=== PATIENT | male | born 1980 | race Caucasian/White ===

== ENCOUNTER 2023-10-14 16:44 | Emergency (ER) | payer BC, SELFPAY ==
[2023-10-14 17:08] VITALS: BP 145/76; PULSE 100; RESP 20; TEMP 37.7; O2SAT 100
--- NOTE | 2023-10-14 18:03 | ED.SKABFB ---
HPI - Skin/Abscess/Foreign Bdy General Chief complaint: Skin/Abscess/Foreign Body Stated complaint: rash on leg in groin area/fever Time Seen by Provider: 10/14/23 18:04 Source: patient, RN notes reviewed and old records reviewed Mode of arrival: ambulatory Limitations: no limitations History of Present Illness HPI narrative: 43 year old male accompanied by friend with complaints of yesterday morning he had fever of 103F and took some dual action Ibuprofen and at 2pm fever gone. Patient states that he had pain to his left groin area at 8 p.m. last night. He states that he noted rash to his left lower leg starting at 0130 this morning which has progressively spread up his lower leg. He states that his left groin redness he noticed today. Patient reports that it has progressively been more difficult to ambulated as day has progressed. Patient does have firmness to his left calf area and reports some tenderness also, pulses strong to left foot Patient reports past back surgery X2 with staph infection after 2nd surgery requiring PICC line and states he developed clots in his left arm from the heparin used to flush PICC line. MD complaint: rash (lower left leg anterior aspect) and other (fevers, redness to left groin) Tetanus up to date: yes Location: LLE Severity scale (1-10): 10 Pain Consistency: constant Exacerbating factors: other (weight bearing) Treatments prior to arrival: other (dual action Ibuprofen last dose at 1000 this morning) Related Data Home Medications Medication Instructions Recorded Confirmed escitalopram oxalate 10 mg tablet 10 mg PO DAILY 10/14/23 10/14/23 omeprazole 20 mg capsule,delayed 20 mg PO DAILY 10/14/23 10/14/23 release Allergies Allergy/AdvReac Type Severity Reaction Status Date / Time vancomycin Allergy Severe Redness of Verified 10/14/23 23:21 Skin heparin AdvReac Intermediate Other Verified 10/14/23 17:34 Review of Systems Review of Systems: CONSTITUTIONAL: Reports fever, chills, or sweats. CARDIOVASCULAR: Denies chest pain, palpitations, or edema. RESPIRATORY: Denies cough or dyspnea. SKIN: Reports redness to left groin upper thigh area, pain redness with rash type of lesions to anterior left lower legs with tightness to calf. MUSCULOSKELETAL: Denies joint pain or myalgia. reports increased difficulty with ambulation due to pain left leg NEUROLOGIC: Denies headache, numbness, or weakness. All systems reviewed & are unremarkable except as noted in HPI and below PMFSH Past Medical History Medical History DVT of axillary vein, acute left Staph infection Surgical History Surgical History History of back surgery x2 Family History Family History Other Family history non-contributory Social History Social History Smoking status: Never smoker Alcohol intake: never Alcohol use details: rare alcohol use Substance use: never Substance use type: does not use Do You Feel Safe in your Home?: Yes Lack of Transportation: No Lack of Food: Never True Current Housing: I Have Housing Concerned About Future Housing: No Difficulty Paying Gas/Electric Bills: No Difficulty Paying for Meds: No Currently Unemployed: No Education: Bachelor's Degree Difficulty w/ Childcare or Family Care: No Gender identity (if verbalized by the patient): Male Spiritual care concerns: No Comments At time of signature, agree with nursing past medical, surgical, social and family history. There is no relevant family history pertinent to the presenting complaint Exam Narrative: GENERAL: flushed-appearing, well-nourished, and in some acute distress. HEAD: Normocephalic, atraumatic. EYES: PERRLA, conjunctivae clear, and EOMI. ENT: Mucous membranes moist. Oropharynx
[2023-10-14 18:38] VITALS: TEMP 39.5
[2023-10-14] MEDS: IBUPROFEN 600 MG TABLET PO (18:38)
[2023-10-14 18:40] VITALS: TEMP 39.5
== END 2023-10-14 18:40 | disposition short-term general hospital (02) ==
PROVIDERS: Emergency Provider Registered Nurse
DX: L03.116 Cellulitis of left lower limb (principal); Z79.899 Other long term (current) drug therapy
CPT/HCPCS: 99212; A9270; G0463

== ENCOUNTER 2023-10-14 19:01 | Inpatient (IN) | payer BC, SELFPAY ==
[2023-10-14] VITALS (24 sets, daily range): BP systolic 130–152; BP diastolic 48–87; PULSE 94–114; RESP 13–24; TEMP 38.8–39.2; O2SAT 97–100; BMI 31.6
--- NOTE | ~2023-10-14 | US_ITS ---
EXAMINATION: US venous doppler [facility] DATE: 10/15/2023 12:20 INDICATION: Left lower limb erythema TECHNIQUE: Grayscale ultrasound images without and with compression and Doppler ultrasound images of the bilateral lower extremity veins were obtained. COMPARISON: None. FINDINGS: The visualized portions of right common femoral vein, profunda (deep) femoral vein, femoral vein, pop liteal vein, posterior tibial veins, peroneal veins, gastrocnemius vein and greater saphenous vein ou tflow are patent. The visualized portions of left common femoral vein, profunda femoral vein, femoral vein, popliteal v ein, posterior tibial veins, peroneal veins, gastrocnemius vein and greater saphenous vein outflow ar e patent. There are few mildly prominent but still normal-sized left inguinal lymph nodes, the larges t measuring 1 cm in maximal short axis diameter which remains within normal limits with typical centr al fatty hilum. IMPRESSION: 1. No deep venous thrombosis in either lower limb. 2. Mild likely reactive left inguinal lymphadenopathy. Reviewed, dictated and finalized at location [facility]. [facility]
[2023-10-14 20:16] LABS: Basophils Percent Auto 0.2 % (0.2-1.2); Eosinophils Percent Auto 0.1 % (0-4.4); Hematocrit 41.6 % (42.0-52.0); Hemoglobin 14.1 g/dL (14.0-18.0); Immature Granulocyte Absolute 0.04 K/mm3 (0.00-0.031); Immature Granulocyte Percent A 0.4 % (0-0.5); Lymphocytes Absolute Auto 0.87 K/mm3 (0.9-3.2); Lymphocytes Percent Auto 8.3 % (18.3-44.2); Mean Corpuscular HGB Conc 33.9 g/dl (32-36); Mean Corpuscular Hemoglobin 27.8 pg (26-34); Mean Corpuscular Volume 82.1 fl (80-100); Mean Platelet Volume 9.9 fl (7.4-10.4); Monocytes Absolute Auto 0.5 K/mm3 (0.1-0.6); Monocytes Percent Auto 5.1 % (2.6-8.5); Neutrophils Percent Auto 85.9 % (45.5-73.1); Platelet Count Result 164 k/mm3 (150-375); Red Blood Count 5.07 M/mm3 (4.6-6.20); White Blood Count 10.5 K/mm3 (4.5-10.0)
[2023-10-14] MEDS: SODIUM CHLORIDE 0.9% IV 1,000 ML 999 ML IV CONT ×2 (20:24→20:40)
[2023-10-14 20:25] LABS: Alanine Aminotransferase 70 U/L (6-50); Albumin Level 3.8 g/dL (3.5-5.1); Alkaline Phosphatase 144 U/L (38-126); Anion Gap 5 mmol/L (8-16); Aspartate Amino Transferase 49 U/L (17-59); Bilirubin,Total 1.3 mg/dL (0.2-1.3); Blood Urea Nitrogen 14 mg/dL (9-20); Calcium 8.6 mg/dL (8.4-10.2); Carbon Dioxide 28 mmol/L (22-30); Chloride 106 mmol/L (98-107); Estimated CRCL calculation 127 ml/min; Estimated Glomerular Filt Rate > 60; Glucose 107 mg/dL (65-110); Potassium 3.4 mmol/L (3.4-5.0); Sodium 139 mmol/L (137-145)
--- NOTE | 2023-10-14 20:27 | ED.EXTPRO ---
HPI - Extremity Problem General Chief complaint: Extremity Problem,Nontraumatic Stated complaint: fever, leg rash, leg pain Time Seen by Provider: 10/14/23 19:13 History of Present Illness HPI Narrative: Patient is a 43-year-old male presenting with rash. Patient states that he was out last night for new year's [place]. He noticed an area of redness on his left leg around 1:30 a.m.. States that he woke up this morning and was still there and he developed a fever. He took some ibuprofen but then the fever returned several hours later. He was seen at urgent care who advised that he come to the ER for evaluation. States that the redness has now spread up to his thigh. States that it really only hurts whenever he tries to stand on it. 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 He denies numbness or weakness. Denies recent trauma. Denies vomiting. No further complaints. Related Data Home Medications Medication Instructions Recorded Confirmed escitalopram oxalate 10 mg tablet 10 mg PO DAILY 10/14/23 10/14/23 omeprazole 20 mg capsule,delayed 20 mg PO DAILY 10/14/23 10/14/23 release Allergies Allergy/AdvReac Type Severity Reaction Status Date / Time vancomycin Allergy Severe Redness of Verified 10/14/23 23:21 Skin heparin AdvReac Intermediate Other Verified 10/14/23 17:34 Review of Systems Review of Systems: All systems reviewed & are unremarkable except as noted in HPI and below PMFSH Past Medical History Medical History DVT of axillary vein, acute left Staph infection Surgical History Surgical History History of back surgery x2 Family History Family History Other Family history non-contributory Social History Social History Smoking status: Never smoker Alcohol intake: never Alcohol use details: rare alcohol use Substance use: never Substance use type: does not use Do You Feel Safe in your Home?: Yes Lack of Transportation: No Lack of Food: Never True Current Housing: I Have Housing Concerned About Future Housing: No Difficulty Paying Gas/Electric Bills: No Difficulty Paying for Meds: No Currently Unemployed: No Education: Bachelor's Degree Difficulty w/ Childcare or Family Care: No Gender identity (if verbalized by the patient): Male Spiritual care concerns: No Exam Narrative: GENERAL: Nontoxic, no acute distress, pleasant cooperative HEAD: Normocephalic, atraumatic. EYES: PERRLA and EOMI. ENT: Mucous membranes moist. NECK: Supple. CHEST: Clear to auscultation. No respiratory distress. HEART: Regular rate and rhythm. ABDOMEN: Soft, nontender, nondistended EXTREMITIES: left leg with large area of erythema distal calf that spreads up to the knee; lymphangitic streaking from the knee to upper thigh, no abscesses, no crepitus, compartments are soft; distal pulses 2+ SKIN: Warm, dry, as above NEURO: No focal deficits. Alert and oriented x3. PSYCH: Normal mood and affect. Course Vital Signs Vital signs: Vital Signs Temperature 101.8 F H 10/14/23 19:13 Pulse Rate 114 H 10/14/23 19:13 Respiratory Rate 21 H 10/14/23 19:13 Blood Pressure 134/82 10/14/23 19:13 Pulse Oximetry 98 10/14/23 19:13 Temperature 97.7 F 10/17/23 20:00 Pulse Rate 79 10/17/23 20:45 Respiratory Rate 17 10/17/23 20:45 Blood Pressure 128/67 10/17/23 20:00 Pulse Oximetry 98 10/17/23 20:45 Oxygen Delivery Room Air 10/17/23 20:45 MDM - Extremity (Nontraumatic) MDM Narrative Medical decision making narrative: 43-year-old male presenting with left leg cellulitis. Patient is febrile and slightly tachycardic on arrival. Exam is remarkable for the above. IV fluids and broad-spectrum antibiot
[2023-10-14 20:56] LABS: Erythrocyte Sedimentation Rate 47 mm/hr (0-20)
[2023-10-14 21:05] LABS: CRP 13.4 mg/dL (<1.0)
[2023-10-14] MEDS: LINEZOLID 600 MG/300 ML 600 MG/300 ML SOLN 300 MG IVPB (21:36)
[2023-10-14] MEDS: CEFEPIME 2 GM/NS 50 ML 2 GM/50 ML BAG IVPB (21:36)
--- NOTE | 2023-10-14 21:38 | PC.NURSE ---
MD requested to hold off on morphine as PRN to see how toradol helps with pain first.
[2023-10-14] MEDS: KETOROLAC 30 MG/ML VIAL (*BKC) IV PUSH (21:42)
[2023-10-14] MEDS: ACETAMINOPHEN 500 MG TABLET 1000 MG PO (22:25)
--- NOTE | 2023-10-14 22:30 | ADMGEN ---
This patient, Jordan Rick, was admitted to Medical Room 249-01. Patient/family oriented to hospital policies and general routines including ID bracelet, bed and alarms, visiting hours, pain management, procedures, bathroom and other care routines, personal items, smoking policy, room service/diet, and visiting hours. Information on how to activate the Rapid Response Team has been discussed. Patient/Family are encouraged to report perceived risks to care and to ask questions if they do not understand what they are told or what they should do.
--- NOTE | 2023-10-14 23:00 | PM.IMHP ---
H&P: HPI History of Present Illness Date/Time: 10/14/23 23:00 Chief Complaint: Patient came to the ED evaluation of his left lower leg rash and left groin area pain Narrative: Very pleasant gentleman who woke up couple nights ago with fever of 103 and noticed pain and swelling in the left groin later that evening. Today morning when he was was getting ready to to go to bed after new year celebration, he saw redness, pain and swelling with rash in the left payne area. The rash has worsened and kept on expanding up to the left thigh and groin area. Patient's partner has been marking the left lower leg rash progression throughout the day which continues to worsen. He went to the urgent care and was sent to the ER for evaluation where workup was done and he was diagnosed with left lower leg cellulitis. 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 He is diagnosed with left leg cellulitis, started on IV cefepime and linezolid and being admitted for medical management and close monitoring. Review of Systems Review of Systems: 14 systems were reviewed with pertinent positives and negatives per HPI. Except as documented in the HPI/progress notes, all other systems were reviewed and are negative. All systems reviewed & are unremarkable except as noted in HPI and below PMFSH Past Medical History Medical History DVT of axillary vein, acute left Staph infection Surgical History Surgical History History of back surgery x2 Family History Family History Other Family history non-contributory Social History Social History Smoking status: Never smoker Alcohol intake: never Alcohol use details: rare alcohol use Substance use: never Substance use type: does not use Do You Feel Safe in your Home?: Yes Lack of Transportation: No Lack of Food: Never True Current Housing: I Have Housing Concerned About Future Housing: No Difficulty Paying Gas/Electric Bills: No Difficulty Paying for Meds: No Currently Unemployed: No Education: Bachelor's Degree Difficulty w/ Childcare or Family Care: No Gender identity (if verbalized by the patient): Male Spiritual care concerns: No Meds Home Medications and Allergies Home Medications Medication Instructions Recorded Confirmed Type escitalopram oxalate 10 mg tablet 10 mg PO DAILY 10/14/23 10/14/23 History omeprazole 20 mg capsule,delayed 20 mg PO DAILY 10/14/23 10/14/23 History release Allergies Allergy/AdvReac Type Severity Reaction Status Date / Time vancomycin Allergy Severe Redness of Verified 10/14/23 23:21 Skin heparin AdvReac Intermediate Other Verified 10/14/23 17:34 Vital Signs Vital Signs - 24 hr 10/14/23 19:13 10/14/23 19:15 10/14/23 19:16 Temperature 38.8 C H Pulse Rate 114 H 102 H Respiratory Rate 21 H 19 Blood Pressure 134/82 141/76 H 141/76 H Pulse Oximetry 98 100 Oxygen Delivery 10/14/23 19:17 10/14/23 19:30 10/14/23 19:31 Temperature Pulse Rate 101 H 95 95 Respiratory Rate 20 20 22 H Blood Pressure 130/76 Pulse Oximetry 100 97 Oxygen Delivery 10/14/23 19:45 10/14/23 20:00 10/14/23 20:01 Temperature Pulse Rate 94 97 98 Respiratory Rate 18 19 18 Blood Pressure 132/74 Pulse Oximetry 98 97 100 Oxygen Delivery 10/14/23 20:15 10/14/23 20:30 10/14/23 20:45 Temperature Pulse Rate 96 98 99 Respiratory Rate 15 23 H 13 Blood Pressure Pulse Oximetry 100 100 Oxygen Delivery 10/14/23 21:00 10/14/23 21:15 10/14/23 21:26 Temperature Pulse Rate 99 104 H 101 H Respiratory Rate 19 18 18 Blood Pressure 152/83 H Pulse Oximetry 100 Oxygen Delivery 10/14/23 21:30 10/14/23 21:31 10/14/23 21:45 Temp
[2023-10-15] VITALS (12 sets, daily range): BP systolic 95–133; BP diastolic 51–65; PULSE 81–100; RESP 14–18; TEMP 36.9–38.8; O2SAT 97–100
[2023-10-15] MEDS: ACETAMINOPHEN 325 MG TABLET 650 MG PO ×3 (02:53→14:27)
[2023-10-15 06:17] LABS: Basophils Percent Auto 0.2 % (0.2-1.2); Eosinophils Percent Auto 0.1 % (0-4.4); Hematocrit 37.3 % (42.0-52.0); Hemoglobin 12.2 g/dL (14.0-18.0); Immature Granulocyte Percent A 0.9 % (0-0.5); Lymphocytes Absolute Auto 1.01 K/mm3 (0.9-3.2); Lymphocytes Percent Auto 9.2 % (18.3-44.2); Mean Corpuscular HGB Conc 32.7 g/dl (32-36); Mean Corpuscular Volume 82.5 fl (80-100); Mean Platelet Volume 10.6 fl (7.4-10.4); Monocytes Absolute Auto 0.6 K/mm3 (0.1-0.6); Monocytes Percent Auto 5.7 % (2.6-8.5); Neutrophils Absolute Auto 9.2 K/mm3 (1.3-6.7); Neutrophils Percent Auto 83.9 % (45.5-73.1); Platelet Count Result 142 k/mm3 (150-375); Red Blood Count 4.52 M/mm3 (4.6-6.20)
[2023-10-15 06:22] LABS: Alanine Aminotransferase 53 U/L (6-50); Albumin Level 3.2 g/dL (3.5-5.1); Alkaline Phosphatase 119 U/L (38-126); Anion Gap 7 mmol/L (8-16); Aspartate Amino Transferase 37 U/L (17-59); Bilirubin,Total 1.7 mg/dL (0.2-1.3); Blood Urea Nitrogen 11 mg/dL (9-20); Calcium 7.9 mg/dL (8.4-10.2); Carbon Dioxide 25 mmol/L (22-30); Chloride 106 mmol/L (98-107); Estimated CRCL calculation 128 ml/min; Estimated Glomerular Filt Rate > 60; Glucose 104 mg/dL (65-110); Magnesium 1.6 mg/dL (1.6-2.3); Phosphorus 2.6 mg/dL (2.5-4.5); Potassium 3.2 mmol/L (3.4-5.0); Sodium 138 mmol/L (137-145)
[2023-10-15 06:36] LABS: CRP 14.4 mg/dL (<1.0)
[2023-10-15] MEDS: CEFEPIME 2 GM/NS 50 ML 2 GM/50 ML BAG IVPB ×2 (09:15→20:24)
[2023-10-15] MEDS: PANTOPRAZOLE 40 MG TABLET PO (09:15)
[2023-10-15] MEDS: ESCITALOPRAM OXALATE 10 MG TABLET PO (09:15)
[2023-10-15] MEDS: KETOROLAC 30 MG/ML VIAL (*BKC) IV PUSH ×2 (09:16→20:26)
[2023-10-15] MEDS: LINEZOLID 600 MG/300 ML 600 MG/300 ML SOLN 300 MG IVPB ×2 (10:15→20:58)
--- NOTE | 2023-10-15 11:14 | PM.IMPN ---
Progress Note: A&P Assessment and Plan (1) Cellulitis: Code(s): L03.90 - Cellulitis, unspecified Status: Acute Assessment and Plan: Continue current abx of Linezolid and Cefepime given his previous hx of Red Man's Reaction to Vancomycin. Continue to monitor labs including Blood cultures Obtain Venous doppler based on appearance and hx of prior DVT. Continue to monitor VS and labs for development of Sepsis. Trend labs Trend VS Treat Fever PRN Provide PRN pain meds (2) SIRS (systemic inflammatory response syndrome): Code(s): R65.10 - Systemic inflammatory response syndrome (SIRS) of non-infectious origin without acute organ dysfunction Status: Acute Assessment and Plan: See #1 (3) Leukocytosis: Code(s): D72.829 - Elevated white blood cell count, unspecified Status: Acute Assessment and Plan: See #1 (4) Lymphadenopathy, inguinal: Code(s): R59.0 - Localized enlarged lymph nodes Status: Acute Assessment and Plan: See #1, likely reactive. Time Spent With Patient Time with patient: 15 - 25 minutes Subjective Date/time seen: 10/15/23 0845 Interval history: This 43 year old male pt w/PMH of previous DVT, and staph infection post Back surgery who was admitted overnight to the medical floor with Acute Cellulitis of the LLE is examined at the bedside today in interval assessment. He reports feeling the same at this point and is noted to still have fever, and pain and swelling to the LLE anteriorly and also to the medial groin with redness and warmth. He remains on IV Cefepime and Linezolid at this time. He has pain medications ordered and PRN anti-pyretics. He did have interval increase today in his WBC count, and his CRP. Blood cultures are still pending. He denies any acute injury or lesions to the LLE prior to the redness, warmth and pain beginning. We are currently awaiting Venous dopplers. He has no other acute complaints at this time such as CP, dyspnea, N/V/D, or any other concerns. Review of Systems Review of Systems: All systems reviewed & are unremarkable except as noted in HPI and below Exam Narrative: PHYSICAL EXAMINATION: General physical exam: Morbidly obese male pt lying supine in bed at this time in no acute distress. Head/eyes: Atraumatic, grossly intact. ENT: Moist mucous membranes, nasal passages clear Neck: Supple, full range of motion, trachea midline CVS: RRR, S1 and S2 present. No M,R,G,H Respiratory:CTAB in all rodney posteriorly. Abdomen: Soft, non-tender, bowel sounds present x4 Extremities: No clubbing, no cyanosis, no edema, no calf tenderness Musculoskeletal: Moves all, adequate range of motion, no muscle spasms Skin: Warm, dry, no jaundice, no cyanosis, ++ maculopapular rash on left payne, extending up the leg to the left groin, + enlarged mildly tender inguinal lymph nodes without palpable cord. Neurological: Awake, alert, oriented x 3, cranial nerves II-XII intact, no focal neurological deficits Psychiatric: Normal mood, non suicidal Objective Data Vital Signs Vital Signs: Vital Signs - 24 hr 10/14/23 19:13 10/14/23 19:15 10/14/23 19:16 Temperature 101.8 F H Pulse Rate 114 H 102 H Respiratory Rate 21 H 19 Blood Pressure 134/82 141/76 H 141/76 H Pulse Oximetry 98 100 Oxygen Delivery 10/14/23 19:17 10/14/23 19:30 10/14/23 19:31 Temperature Pulse Rate 101 H 95 95 Respiratory Rate 20 20 22 H Blood Pressure 130/76 Pulse Oximetry 100 97 Oxygen Delivery 10/14/23 19:45 10/14/23 20:00 10/14/23 20:01 Temperature Pulse Rate 94 97 98 Respiratory Rate 18 19 18 Blood Pressure 132/74 Pulse Oximetry 98 97 100 Oxygen Delivery 10/14/23 20:15 10/14/23 20:30 10/14/23 20:45 Temperature Pulse Rate 96 98 99 Respiratory Rate 15 23 H 13 Blood Pressure Pulse Oximetry 100 100 Oxygen Delivery 10/14/23 21:00 10/14/23 21:15 10/14/23 21:26 Temperature Pulse R
[2023-10-15] MEDS: POTASSIUM CHLORIDE 20 MEQ ER TABLET 40 MEQ PO (20:25)
[2023-10-16] VITALS (13 sets, daily range): BP systolic 106–134; BP diastolic 53–72; PULSE 71–96; RESP 16–18; TEMP 37.1–38.6; O2SAT 92–98
[2023-10-16] MEDS: ACETAMINOPHEN 325 MG TABLET 650 MG PO ×4 (00:10→21:06)
[2023-10-16 06:09] LABS: Basophils Percent Auto 0.2 % (0.2-1.2); Eosinophils Absolute Auto 0.1 K/mm3 (0-0.3); Eosinophils Percent Auto 0.7 % (0-4.4); Hemoglobin 11.8 g/dL (14.0-18.0); Immature Granulocyte Absolute 0.06 K/mm3 (0.00-0.031); Immature Granulocyte Percent A 0.7 % (0-0.5); Immature Platelet Fraction Pct 4.9 % (0.9-11.2); Lymphocytes Percent Auto 7.7 % (18.3-44.2); Mean Corpuscular HGB Conc 32.8 g/dl (32-36); Mean Corpuscular Hemoglobin 26.9 pg (26-34); Mean Corpuscular Volume 82.2 fl (80-100); Mean Platelet Volume 10.6 fl (7.4-10.4); Monocytes Absolute Auto 0.6 K/mm3 (0.1-0.6); Monocytes Percent Auto 6.9 % (2.6-8.5); Neutrophils Absolute Auto 7.6 K/mm3 (1.3-6.7); Neutrophils Percent Auto 83.8 % (45.5-73.1); Platelet Count Result 139 k/mm3 (150-375); Red Blood Count 4.38 M/mm3 (4.6-6.20); Red Cell Distribution Width 13.9 % (11.5-14.5); White Blood Count 9.1 K/mm3 (4.5-10.0)
[2023-10-16 06:27] LABS: Alanine Aminotransferase 44 U/L (6-50); Albumin Level 3.2 g/dL (3.5-5.1); Alkaline Phosphatase 148 U/L (38-126); Anion Gap 8 mmol/L (8-16); Aspartate Amino Transferase 28 U/L (17-59); Bilirubin,Total 2.3 mg/dL (0.2-1.3); Blood Urea Nitrogen 11 mg/dL (9-20); Calcium 8.3 mg/dL (8.4-10.2); Carbon Dioxide 24 mmol/L (22-30); Chloride 105 mmol/L (98-107); Estimated CRCL calculation 116 ml/min; Estimated Glomerular Filt Rate > 60; Glucose 102 mg/dL (65-110); Potassium 3.3 mmol/L (3.4-5.0); Sodium 137 mmol/L (137-145)
[2023-10-16 07:05] LABS: CRP 21.4 mg/dL (<1.0)
[2023-10-16] MEDS: ESCITALOPRAM OXALATE 10 MG TABLET PO (08:30)
[2023-10-16] MEDS: PANTOPRAZOLE 40 MG TABLET PO (08:31)
[2023-10-16] MEDS: ENOXAPARIN 40 MG/0.4 ML SYRINGE SUB-Q (08:31)
[2023-10-16] MEDS: LINEZOLID 600 MG/300 ML 600 MG/300 ML SOLN 300 MG IVPB ×2 (08:32→20:23)
[2023-10-16] MEDS: CEFEPIME 2 GM/NS 50 ML 2 GM/50 ML BAG IVPB ×2 (12:00→20:23)
[2023-10-16] MEDS: KETOROLAC 30 MG/ML VIAL (*BKC) IV PUSH (12:01)
--- NOTE | 2023-10-16 12:22 | PM.IMPN ---
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 Continue to monitor labs including Blood cultures Venous doppler negative for DVT. Continue to monitor VS and labs for development of Sepsis. Blood cultures no growth to date Treat Fever PRN Provide PRN pain meds RPR, HIV, gonorrhea and chlamydia test ordered (2) SIRS (systemic inflammatory response syndrome): Code(s): R65.10 - Systemic inflammatory response syndrome (SIRS) of non-infectious origin without acute organ dysfunction Status: Acute Assessment and Plan: See #1 (3) Leukocytosis: Code(s): D72.829 - Elevated white blood cell count, unspecified Status: Acute Assessment and Plan: See #1 (4) Lymphadenopathy, inguinal: Code(s): R59.0 - Localized enlarged lymph nodes Status: Acute Assessment and Plan: See #1, likely reactive. Subjective Date/time seen: 10/16/23 12:22 Interval history: Patient states that he does not believe his leg is improving but also not worsening. Patient states that he 1st developed some groin tenderness and when he took his pants off prior to going to bed he noticed a rash over his payne as well as erythema surrounding the lower extremity and up into the groin. He has associated fevers but denies any nausea, vomiting and diarrhea. Patient denies trauma or injury at the site of the rash or itching. Denies recent travel, hunting, camping, new medication changes, or any sick contacts. Exam Narrative: GENERAL: Comfortable, no acute distress HENMT: moist mucous membranes EYES: EOM intact b/l NECK: no lymphadenopathy RESPIRATORY: clear to auscultation CARDIO: RRR GI: soft, nontender, bowel sounds present SKIN: circumferential erythema over the extremity that extends up the inner thigh and into the groin, palpable inguinal lymphadenopathy; over the payne there is a darker red, blanching rash. Calf squeeze tenderness, leg tender to touch and warm to touch, nonpitting edema. EXTREMITIES: no edema, redness or tenderness Objective Data Vital Signs Vital Signs: Vital Signs - 24 hr 10/15/23 14:27 10/15/23 16:35 10/15/23 20:10 Temperature 100.5 F H 98.4 F 99.1 F Pulse Rate 100 92 Respiratory Rate 16 14 Blood Pressure 122/59 L 114/57 L Pulse Oximetry 98 99 Oxygen Delivery 10/15/23 20:16 10/16/23 00:00 10/16/23 00:10 Temperature 101.5 F H 101.5 F H Pulse Rate 96 Respiratory Rate 16 Blood Pressure 113/60 Pulse Oximetry 97 Oxygen Delivery Room Air 10/16/23 01:07 10/16/23 04:20 10/16/23 04:22 Temperature 100.3 F H 100.8 F H 100.8 F H Pulse Rate 94 Respiratory Rate 16 Blood Pressure 106/53 L Pulse Oximetry 92 Oxygen Delivery 10/16/23 05:55 10/16/23 05:55 10/16/23 08:00 Temperature 99.3 F 99.3 F 98.8 F Pulse Rate 92 Respiratory Rate 17 Blood Pressure 108/56 L Pulse Oximetry 93 Oxygen Delivery Intake/Output Intake/Output: Intake & Output 10/13/23 10/14/23 10/15/23 10/16/23 23:59 23:59 23:59 23:59 Intake Total 2350 2560 690 Output Total 1800 1000 Balance 2350 760 -310 Meds/Results Medications: Active Medications Generic Name Dose Route Start Last Admin Trade Name Freq PRN Reason Stop Dose Admin Acetaminophen 650 mg 10/14/23 23:16 10/16/23 08:30 Acetaminophen 325 Mg Tablet PO 650 mg Q4H PRN Administration Mild Pain (1-3) or Fever Al Hydrox/Mg Hydrox/Simethicone 30 ml 10/14/23 23:16 Mag Hydrox/Al Hydrox/Simeth 30 Ml Udc PO QID PRN Dyspepsia Enoxaparin Sodium 40 mg
[2023-10-16 17:38] LABS: Chlamydia trachomatis NOT DETECTED (NOT DETECTE); Neisseria gonorrhoeae PCR NOT DETECTED (NOT DETECTE)
[2023-10-17] VITALS (11 sets, daily range): BP systolic 111–133; BP diastolic 48–70; PULSE 65–93; RESP 16–18; TEMP 36.4–37.8; O2SAT 94–99
[2023-10-17] MEDS: ACETAMINOPHEN 325 MG TABLET 650 MG PO (01:06)
[2023-10-17 06:25] LABS: Basophils Percent Auto 0.2 % (0.2-1.2); Eosinophils Absolute Auto 0.1 K/mm3 (0-0.3); Eosinophils Percent Auto 1.3 % (0-4.4); Hematocrit 36.7 % (42.0-52.0); Hemoglobin 12.2 g/dL (14.0-18.0); Immature Granulocyte Absolute 0.08 K/mm3 (0.00-0.031); Lymphocytes Absolute Auto 1.15 K/mm3 (0.9-3.2); Mean Corpuscular HGB Conc 33.2 g/dl (32-36); Mean Corpuscular Hemoglobin 27.2 pg (26-34); Mean Corpuscular Volume 81.9 fl (80-100); Mean Platelet Volume 9.9 fl (7.4-10.4); Monocytes Absolute Auto 0.5 K/mm3 (0.1-0.6); Monocytes Percent Auto 6.2 % (2.6-8.5); Neutrophils Absolute Auto 6.4 K/mm3 (1.3-6.7); Neutrophils Percent Auto 77.3 % (45.5-73.1); Platelet Count Result 194 k/mm3 (150-375); Red Blood Count 4.48 M/mm3 (4.6-6.20); Red Cell Distribution Width 13.9 % (11.5-14.5); White Blood Count 8.2 K/mm3 (4.5-10.0)
[2023-10-17 06:43] LABS: Alanine Aminotransferase 37 U/L (6-50); Albumin Level 3.2 g/dL (3.5-5.1); Alkaline Phosphatase 184 U/L (38-126); Anion Gap 8 mmol/L (8-16); Aspartate Amino Transferase 23 U/L (17-59); Bilirubin,Total 1.3 mg/dL (0.2-1.3); Blood Urea Nitrogen 7 mg/dL (9-20); Calcium 8.3 mg/dL (8.4-10.2); Carbon Dioxide 26 mmol/L (22-30); Chloride 106 mmol/L (98-107); Estimated CRCL calculation 143 ml/min; Estimated Glomerular Filt Rate > 60; Glucose 95 mg/dL (65-110); Potassium 3.5 mmol/L (3.4-5.0); Sodium 140 mmol/L (137-145)
[2023-10-17 07:01] LABS: CRP 18.7 mg/dL (<1.0)
[2023-10-17] MEDS: ENOXAPARIN 40 MG/0.4 ML SYRINGE SUB-Q (09:18)
[2023-10-17] MEDS: ESCITALOPRAM OXALATE 10 MG TABLET PO (09:18)
[2023-10-17] MEDS: CEFEPIME 2 GM/NS 50 ML 2 GM/50 ML BAG IVPB ×2 (09:18→20:33)
[2023-10-17] MEDS: PANTOPRAZOLE 40 MG TABLET PO (09:18)
[2023-10-17] MEDS: LINEZOLID 600 MG/300 ML 600 MG/300 ML SOLN 300 MG IVPB ×2 (09:26→20:33)
--- NOTE | 2023-10-17 12:11 | PM.IMPN ---
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 Continue to monitor labs including Blood cultures Venous Doppler negative for DVT. Continue to monitor VS and labs for development of Sepsis. Blood cultures no growth to date Treat Fever PRN Provide PRN pain Meds RPR, HIV Pending Gonorrhea chlamydia test negative. Recommend elevation (2) SIRS (systemic inflammatory response syndrome): Code(s): R65.10 - Systemic inflammatory response syndrome (SIRS) of non-infectious origin without acute organ dysfunction Status: Acute Assessment and Plan: See #1 (3) Leukocytosis: Code(s): D72.829 - Elevated white blood cell count, unspecified Status: Acute Assessment and Plan: See #1 (4) Lymphadenopathy, inguinal: Code(s): R59.0 - Localized enlarged lymph nodes Status: Acute Assessment and Plan: See #1, likely reactive. Subjective Date/time seen: 10/17/23 12:11 Interval history: Patient's temperature is going down although it is still every once a while reaching 99 to low 100s. Cellulitis sores does appear to be slightly improved today. Patient is still having a lot of pain with walking in the back of his calf. Encouraged elevation of the leg. Will give 1 dose of Lasix to aid with swelling. Exam Narrative: GENERAL: Comfortable, no acute distress HENMT: moist mucous membranes EYES: EOM intact b/l NECK: no lymphadenopathy RESPIRATORY: clear to auscultation CARDIO: RRR GI: soft, nontender, bowel sounds present SKIN: circumferential erythema over the extremity that extends up the inner thigh and into the groin, palpable inguinal lymphadenopathy; over the payne there is a darker red, blanching rash. Calf squeeze tenderness, leg tender to touch and warm to touch, nonpitting edema. EXTREMITIES: no edema, redness or tenderness Objective Data Vital Signs Vital Signs: Vital Signs - 24 hr 10/16/23 16:00 10/16/23 20:00 10/16/23 21:06 Temperature 100 F H 100.4 F H 100.4 F H Pulse Rate 71 94 Respiratory Rate 18 16 Blood Pressure 113/62 134/72 Pulse Oximetry 98 98 Oxygen Delivery 10/16/23 20:25 10/16/23 22:02 10/16/23 22:06 Temperature 100.3 F H 100 F H Pulse Rate Respiratory Rate Blood Pressure Pulse Oximetry Oxygen Delivery Room Air 10/17/23 00:20 10/17/23 00:54 10/17/23 01:06 Temperature 97.6 F 100.1 F H 100.1 F H Pulse Rate 65 89 Respiratory Rate 18 16 Blood Pressure 116/48 L 111/56 L Pulse Oximetry 98 99 Oxygen Delivery 10/17/23 02:05 10/17/23 06:58 10/17/23 08:00 Temperature 99.8 F H 99.8 F H 99.7 F H Pulse Rate 93 90 Respiratory Rate 16 17 Blood Pressure 121/68 120/60 Pulse Oximetry 97 97 Oxygen Delivery 10/17/23 09:18 Temperature Pulse Rate Respiratory Rate 18 Blood Pressure Pulse Oximetry 97 Oxygen Delivery Room Air Intake/Output Intake/Output: Intake & Output 10/14/23 10/15/23 10/16/23 10/17/23 23:59 23:59 23:59 23:59 Intake Total 2350 2560 2384 1240 Output Total 1800 1700 2100 Balance 2350 760 684 -860 Meds/Results Medications: Active Medications Generic Name Dose Route Start Last Admin Trade Name Freq PRN Reason Stop Dose Admin Acetaminophen 650 mg 10/14/23 23:16 10/17/23 01:06 Acetaminophen 325 Mg Tablet PO 650 mg Q4H PRN Administration Mild Pain (1-3) or Fever Al Hydrox/Mg Hydrox/Simethicone 30 ml 10/14/23 23:16 Mag Hydrox/Al Hydrox/Simeth 30 Ml Udc PO QID PRN Dyspepsia Enoxaparin Sodium 40 mg 10/16/23 09:00 10/17/23
[2023-10-17] MEDS: FUROSEMIDE INJ 40 MG/4 ML VIAL IV PUSH (14:13)
[2023-10-17 15:53] LABS: Rapid Plasma Reagin Non-Reactive (NonReactive)
[2023-10-17] MEDS: KETOROLAC 30 MG/ML VIAL (*BKC) IV PUSH (20:33)
[2023-10-18] VITALS: BP 115/64; PULSE 61; RESP 18; TEMP 37.1; O2SAT 97
[2023-10-18 03:38] VITALS: BP 119/74; PULSE 59; RESP 17; TEMP 37.1; O2SAT 97
[2023-10-18 04:57] LABS: Hematocrit 36.8 % (42.0-52.0); Hemoglobin 11.8 g/dL (14.0-18.0); Mean Corpuscular HGB Conc 32.1 g/dl (32-36); Mean Corpuscular Hemoglobin 26.7 pg (26-34); Mean Corpuscular Volume 83.3 fl (80-100); Mean Platelet Volume 10.3 fl (7.4-10.4); Platelet Count Result 182 k/mm3 (150-375); Red Blood Count 4.42 M/mm3 (4.6-6.20); White Blood Count 5.7 K/mm3 (4.5-10.0)
[2023-10-18 05:11] LABS: Alanine Aminotransferase 33 U/L (6-50); Albumin Level 3.3 g/dL (3.5-5.1); Alkaline Phosphatase 189 U/L (38-126); Anion Gap 9 mmol/L (8-16); Aspartate Amino Transferase 27 U/L (17-59); Bilirubin,Total 1.1 mg/dL (0.2-1.3); Blood Urea Nitrogen 10 mg/dL (9-20); Calcium 8.2 mg/dL (8.4-10.2); Carbon Dioxide 28 mmol/L (22-30); Chloride 102 mmol/L (98-107); Estimated CRCL calculation 143 ml/min; Estimated Glomerular Filt Rate > 60; Glucose 98 mg/dL (65-110); Potassium 3.4 mmol/L (3.4-5.0); Sodium 139 mmol/L (137-145)
[2023-10-18 05:20] LABS: CRP 13.5 mg/dL (<1.0)
[2023-10-18 08:05] VITALS: BP 130/78; PULSE 79; RESP 18; TEMP 37.1; O2SAT 93
[2023-10-18] MEDS: CEFEPIME 2 GM/NS 50 ML 2 GM/50 ML BAG IVPB ×2 (08:59→20:49)
[2023-10-18] MEDS: ESCITALOPRAM OXALATE 10 MG TABLET PO (08:59)
[2023-10-18] MEDS: PANTOPRAZOLE 40 MG TABLET PO (08:59)
[2023-10-18] MEDS: KETOROLAC 30 MG/ML VIAL (*BKC) IV PUSH (09:09)
[2023-10-18] MEDS: ENOXAPARIN 40 MG/0.4 ML SYRINGE SUB-Q (09:10)
--- NOTE | 2023-10-18 11:33 | PM.IMPN ---
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 Continue to monitor labs including Blood cultures Venous Doppler negative for DVT. Continue to monitor VS and labs for development of Sepsis. Blood cultures no growth to date Treat Fever PRN Provide PRN pain Meds RPR non-reactive. Gonorrhea chlamydia test negative. (2) SIRS (systemic inflammatory response syndrome): Code(s): R65.10 - Systemic inflammatory response syndrome (SIRS) of non-infectious origin without acute organ dysfunction Status: Acute Assessment and Plan: See #1 (3) Leukocytosis: Code(s): D72.829 - Elevated white blood cell count, unspecified Status: Acute Assessment and Plan: See #1 (4) Lymphadenopathy, inguinal: Code(s): R59.0 - Localized enlarged lymph nodes Status: Acute Assessment and Plan: See #1, likely reactive. Subjective Date/time seen: 10/18/23 11:33 Interval history: Patient's swelling is improved today. He states that he still has discomfort with ambulation but it is better than yesterday. Erythema is also improved patient did not have any fevers overnight feels if patient continues to improve he can discharge home tomorrow. Exam Narrative: GENERAL: Comfortable, no acute distress HENMT: moist mucous membranes EYES: EOM intact b/l NECK: no lymphadenopathy RESPIRATORY: clear to auscultation CARDIO: RRR GI: soft, nontender, bowel sounds present SKIN: circumferential erythema over the extremity that extends up the inner thigh and into the groin, palpable inguinal lymphadenopathy; over the payne there is a darker red, blanching rash. Calf squeeze tenderness, leg tender to touch and warm to touch, nonpitting edema. -- improving EXTREMITIES: no edema, redness or tenderness Objective Data Vital Signs Vital Signs: Vital Signs - 24 hr 10/17/23 12:00 10/17/23 16:00 10/17/23 20:00 Temperature 99.4 F 99.5 F 97.7 F Pulse Rate 88 79 73 Respiratory Rate 16 17 17 Blood Pressure 119/64 133/70 128/67 Pulse Oximetry 97 98 94 Oxygen Delivery 10/17/23 20:45 10/18/23 00:00 10/18/23 03:38 Temperature 98.8 F 98.8 F Pulse Rate 79 61 59 L Respiratory Rate 17 18 17 Blood Pressure 115/64 119/74 Pulse Oximetry 98 97 97 Oxygen Delivery Room Air 10/18/23 08:05 Temperature 98.8 F Pulse Rate 79 Respiratory Rate 18 Blood Pressure 130/78 Pulse Oximetry 93 Oxygen Delivery Intake/Output Intake/Output: Intake & Output 10/15/23 10/16/23 10/17/23 10/18/23 23:59 23:59 23:59 23:59 Intake Total 2560 2384 3684 660 Output Total 1800 1700 6900 900 Balance 760 684 -3216 -240 Meds/Results Medications: Active Medications Generic Name Dose Route Start Last Admin Trade Name Freq PRN Reason Stop Dose Admin Acetaminophen 650 mg 10/14/23 23:16 10/17/23 01:06 Acetaminophen 325 Mg Tablet PO 650 mg Q4H PRN Administration Mild Pain (1-3) or Fever Al Hydrox/Mg Hydrox/Simethicone 30 ml 10/14/23 23:16 Mag Hydrox/Al Hydrox/Simeth 30 Ml Udc PO QID PRN Dyspepsia Enoxaparin Sodium 40 mg 10/16/23 09:00 10/18/23 09:10 Enoxaparin 40 Mg/0.4 Ml Syringe SUB-Q 40 mg DAILY SHEYLA Administration Escitalopram Oxalate 10 mg 10/15/23 09:00 10/18/23 08:59 Escitalopram Oxalate 10 Mg Tablet PO 10 mg DAILY SHEYLA Administration Linezolid 600 mg in 300 mls @ 300 mls/hr 10/15/23 09:00 10/17/23 21:33 Zyvox IVPB Infused Q12HR SHEYLA Infusion Cefepime HCl 2 gm in 50 mls @ 100 mls/hr 10/15/23 09:00 10/18/23 09:29 Maxipime 2 Gm/
[2023-10-18] MEDS: LINEZOLID 600 MG/300 ML 600 MG/300 ML SOLN 300 MG IVPB ×2 (12:06→21:28)
[2023-10-18 12:30] VITALS: BP 118/52; PULSE 72; RESP 20; TEMP 36.8; O2SAT 94
[2023-10-18 16:00] VITALS: BP 134/65; PULSE 75; RESP 18; TEMP 36.8; O2SAT 96
[2023-10-18 18:17] LABS: HIV 1 RNA PCR Not Detected Copies/mL; HIV 1 RNA PCR Not Detected Log cps/mL
[2023-10-18 20:00] VITALS: BP 127/76; PULSE 60; RESP 19; TEMP 36.8; O2SAT 98
[2023-10-19] VITALS: BP 126/71; PULSE 75; RESP 19; TEMP 36.8; O2SAT 94
[2023-10-19 04:00] VITALS: BP 129/74; PULSE 68; RESP 19; TEMP 36.6; O2SAT 93
[2023-10-19 05:09] LABS: Basophils Percent Auto 0.7 % (0.2-1.2); Eosinophils Absolute Auto 0.2 K/mm3 (0-0.3); Eosinophils Percent Auto 2.9 % (0-4.4); Hematocrit 35.9 % (42.0-52.0); Immature Granulocyte Absolute 0.14 K/mm3 (0.00-0.031); Immature Granulocyte Percent A 2.6 % (0-0.5); Lymphocytes Absolute Auto 1.14 K/mm3 (0.9-3.2); Lymphocytes Percent Auto 20.8 % (18.3-44.2); Mean Corpuscular HGB Conc 33.4 g/dl (32-36); Mean Corpuscular Volume 80.7 fl (80-100); Mean Platelet Volume 8.9 fl (7.4-10.4); Monocytes Absolute Auto 0.4 K/mm3 (0.1-0.6); Monocytes Percent Auto 7.7 % (2.6-8.5); Neutrophils Absolute Auto 3.6 K/mm3 (1.3-6.7); Neutrophils Percent Auto 65.3 % (45.5-73.1); Platelet Count Result 219 k/mm3 (150-375); Red Blood Count 4.45 M/mm3 (4.6-6.20); Red Cell Distribution Width 13.7 % (11.5-14.5); White Blood Count 5.5 K/mm3 (4.5-10.0)
[2023-10-19 05:21] LABS: Anion Gap 5 mmol/L (8-16); Blood Urea Nitrogen 11 mg/dL (9-20); CRP 6.3 mg/dL (<1.0); Calcium 8.4 mg/dL (8.4-10.2); Carbon Dioxide 29 mmol/L (22-30); Chloride 104 mmol/L (98-107); Estimated CRCL calculation 143 ml/min; Estimated Glomerular Filt Rate > 60; Glucose 95 mg/dL (65-110); Potassium 3.6 mmol/L (3.4-5.0); Sodium 138 mmol/L (137-145)
[2023-10-19 07:30] VITALS: BP 122/66; PULSE 86; RESP 18; TEMP 36.9; O2SAT 92
--- NOTE | 2023-10-19 08:51 | PM.DS ---
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 Continue to monitor labs including Blood cultures Venous Doppler negative for DVT. Continue to monitor VS and labs for development of Sepsis. Blood cultures no growth to date Treat Fever PRN Provide PRN pain Meds RPR non-reactive. Gonorrhea chlamydia test negative. (2) SIRS (systemic inflammatory response syndrome): Code(s): R65.10 - Systemic inflammatory response syndrome (SIRS) of non-infectious origin without acute organ dysfunction Status: Acute Assessment and Plan: See #1 (3) Leukocytosis: Code(s): D72.829 - Elevated white blood cell count, unspecified Status: Acute Assessment and Plan: See #1 (4) Lymphadenopathy, inguinal: Code(s): R59.0 - Localized enlarged lymph nodes Status: Acute Assessment and Plan: See #1, likely reactive. DS: Summary Hospital Course Hospital Course: This is a 43-year-old male with insignificant past medical history that presented to the ED with fever, leg and groin pain and swelling on 10/14/2023. Patient noticed a pain in his groin when he took his pants of he realize he had a rash over his payne. He washed the rash for a couple of hours and when it started to spread he decided to come to the ED. he has a history of red man syndrome with vancomycin as he was put on linezolid and cefepime. Patient had fevers for approximately 3 days in the hospital. Patient's CRP was trended and decreased during his hospital stay. patient improved on antibiotic therapy. Patient's labs and vital signs stabilized and his antibiotics were changed from IV to p.o.. Will complete total of 7 days on antibiotic therapy. His labs and vital signs are stable and he is medically cleared for discharge at this time. Time Spent with Patient Time attestation: Total time spent providing and/or coordinating discharge services: DS: Data Data Completed and Pending Labs on day of discharge: Labs from last 24 hours 10/19/23 10/16/23 05:00 13:34 WBC 5.5 RBC 4.45 L Hgb 12.0 L Hct 35.9 L MCV 80.7 MCH 27.0 MCHC 33.4 RDW 13.7 Plt Count 219 MPV 8.9 Immature Gran % (Auto) 2.6 H Neut % (Auto) 65.3 Lymph % (Auto) 20.8 Storey % (Auto) 7.7 Eos % (Auto) 2.9 Baso % (Auto) 0.7 Lymph # (Auto) 1.14 Storey # (Auto) 0.4 Eos # (Auto) 0.2 Baso # (Auto) 0.0 Abs Immat Gran (auto) 0.14 H Absolute Neuts (auto) 3.6 Absolute Nucleated RBC 0.0 Nucleated RBC % 0.0 Sodium 138 Potassium 3.6 Chloride 104 Carbon Dioxide 29 Anion Gap 5 L BUN 11 Creatinine 0.80 Estim Creat Clear Calc 143 Estimated GFR > 60 Glucose 95 Calcium 8.4 C-Reactive Protein 6.3 H HIV-1 RNA logcopies/mL Not detected HIV-1 RNA PCR copies/ml Not detected Preliminary micro results at discharge 10/14/23 21:24 Blood Culture - Preliminary Blood 10/14/23 20:39 Blood Culture - Preliminary Blood Discharge Plan Discharge Attending physician on discharge: Jennifer Donaldson Consulting providers: Enrique Dorsey Discharging Clinician: Monik Anthony Patient Disposition: Home, Self-Care Activity: as tolerated Diet: regular Discharge Instructions: Medications: Linezolid twice daily, take next dose tonight. Keflex 3 times a day, next dose around 2pm this afternoon. Return to the emergency department if: -your wound gets larger and more painful -you f
[2023-10-19] MEDS: ESCITALOPRAM OXALATE 10 MG TABLET PO (09:52)
[2023-10-19] MEDS: PANTOPRAZOLE 40 MG TABLET PO (09:52)
[2023-10-19] MEDS: CEFEPIME 2 GM/NS 50 ML 2 GM/50 ML BAG IVPB (09:53)
[2023-10-19] MEDS: ENOXAPARIN 40 MG/0.4 ML SYRINGE SUB-Q (09:54)
[2023-10-19] MEDS: LINEZOLID 600 MG/300 ML 600 MG/300 ML SOLN 300 MG IVPB (10:41)
[2023-10-19 11:39] LABS: HIV DNA PCR (Qual) Not Detected (Not Detected)
[2023-10-19] MEDS: KETOROLAC 30 MG/ML VIAL (*BKC) IV PUSH (11:51)
== END 2023-10-19 13:14 | disposition home or self-care (01) | DRG 603 ==
LOC: ANHED 21:57 → ANH2MED 22:14
PROVIDERS: Admitting Provider Family Medicine; Emergency Provider Emergency Medicine; Visit Provider Internal Medicine Critical Care Medicine
DX: L03.116 Cellulitis of left lower limb (principal); R65.10 Systemic inflammatory response syndrome (SIRS) of non-infectious origin without acute organ dysfunction; D72.829 Elevated white blood cell count, unspecified; R59.0 Localized enlarged lymph nodes; E66.01 Morbid (severe) obesity due to excess calories; Z86.718 Personal history of other venous thrombosis and embolism; Z68.31 Body mass index [BMI] 31.0-31.9, adult
CPT/HCPCS: 36415; 80048; 80053; 83605; 83735; 84100; 85025; 85027; 85055; 85652; 86140; 86592; 87040; 87491; 87535; 87536; 87591; 93970; 96360; 99285; A9270; J0692; J1650; J1885; J1940; J2020; J7030